=== PATIENT | female | born 1990 | race Caucasian/White ===

== ENCOUNTER 2023-08-03 10:49 | Outpatient (CLI) | payer BC, SELFPAY | END 2023-08-03 10:50 | disposition home or self-care (01) | LOC: NFLDREF 08-04 05:32 | PROVIDERS: Visit Provider Advanced Practice Midwife | DX: O20.9 Hemorrhage in early pregnancy, unspecified (principal) | CPT/HCPCS: 84702; 86850; 86900; 86901 ==

== ENCOUNTER 2023-08-06 09:53 | Outpatient (CLI) | payer BC, SELFPAY | END 2023-08-06 09:54 | disposition home or self-care (01) | LOC: NFLDREF 08-08 07:52 | PROVIDERS: Visit Provider Advanced Practice Midwife | DX: O20.9 Hemorrhage in early pregnancy, unspecified (principal); Z3A.01 Less than 8 weeks gestation of pregnancy | CPT/HCPCS: 84702 ==

== ENCOUNTER 2024-01-25 13:36 | Outpatient (CLI) | payer BC, SELFPAY | END 2024-01-25 13:37 | disposition home or self-care (01) | PROVIDERS: PCP Emergency Medicine; Visit Provider Midwife | DX: Z34.91 Encounter for supervision of normal pregnancy, unspecified, first trimester (principal); Z3A.08 8 weeks gestation of pregnancy | CPT/HCPCS: 76817; 86592; 86703; 86704; 86706; 86762; 86787; 86803; 86850; 86900; 86901; 87086; 87340 ==

== ENCOUNTER 2024-02-27 10:48 | Outpatient (CLI) | payer BC, SELFPAY | END 2024-02-27 10:49 | disposition home or self-care (01) | LOC: NFLDREF 02-28 05:42 | PROVIDERS: PCP Emergency Medicine; Referring Provider Emergency Medicine; Visit Provider Advanced Practice Midwife | DX: Z11.3 Encounter for screening for infections with a predominantly sexual mode of transmission (principal) | CPT/HCPCS: 87491; 87591 ==

== ENCOUNTER 2024-04-18 09:04 | Outpatient (CLI) | payer BC, SELFPAY ==
--- NOTE | 2024-04-18 09:15 | CRLHL7_ITS ---
For Patients: As a result of the Century Cures Act, medical imaging exams and procedure reports are released immediately into your electronic medical record. You may view this report before your referring provider. If you have questions, please contact your health care provider. INDICATION: Evaluate anatomy. COMPARISON: 01/25/2024 TECHNIQUE: Real time stoner scale imaging of the fetus was performed as well as color Doppler analysis of the umbilical vessels. FINDINGS: Sonographic imaging demonstrates a single living intrauterine gestation. Fetus demonstrates a regular cardiac rate of 149 beats per minute. Fetus has a vertex position. The placenta lies posteriorly without evidence of placenta previa. Placental edge 5.7 cm from the internal cervical os. Amniotic fluid volume appears normal. Single deepest vertical pocket: 4.4 cm. The cervix is closed and measures 6.2 cm in length. The composite ultrasound gestational age is calculated at 21 weeks 5 days with an estimated sonographic due date of 08/24/2024. The estimated weight is 422 grams which lies at the 95th %. The following biometric measurements were obtained: Biparietal diameter: 5.1 cm/21 weeks 3 days 90th% Head circumference: 19.2 cm/21 weeks 3 days 87th% Abdominal circumference: 16.4 cm/21 weeks 3 days 80th% Femur length: 3.6 cm/21 weeks 3 days 79th% The HC/AC ratio measures: 1.17 range (1.06-1.24) On anatomic survey, there is a normal appearance of the cerebral ventricles, cavum septi pellucidi, cisterna magna and cerebellum. The nose, lips, and facial profile appear normal. The cervical, thoracic and lumbar spine are well visualized and appear normal. There is a normal four-chamber heart view and the left and right ventricular outflow tracts appear normal. The diaphragm and stomach appear normal. The kidneys and bladder also appear normal. There is a normal three-vessel cord and cord insertion site. The four extremities appear normal. IMPRESSION: Sonographic gestational age 21 weeks 5 days and sonographic due date of 08/24/2024. Sonographic age 10 days ahead of the clinical age. Estimated weight 95th percentile. Abdominal circumference 80th percentile. No intrinsic abnormalities noted on anatomic survey. Dictated by Edwin Antunez MD @ 04/18/2024 10:58:50 AM (Electronically Signed)
== END 2024-04-18 09:05 | disposition home or self-care (01) ==
LOC: US 09:05
PROVIDERS: PCP Emergency Medicine; Visit Provider Midwife
DX: Z34.92 Encounter for supervision of normal pregnancy, unspecified, second trimester (principal); Z3A.21 21 weeks gestation of pregnancy
CPT/HCPCS: 76805

== ENCOUNTER 2024-06-11 10:06 | Outpatient (CLI) | payer BC, SELFPAY | END 2024-06-11 10:07 | disposition home or self-care (01) | LOC: NFLDREF 06-16 18:53 | PROVIDERS: PCP Emergency Medicine; Referring Provider Emergency Medicine; Visit Provider Advanced Practice Midwife | DX: Z34.93 Encounter for supervision of normal pregnancy, unspecified, third trimester (principal); Z3A.28 28 weeks gestation of pregnancy | CPT/HCPCS: 86592 ==

== ENCOUNTER 2024-06-13 08:08 | Outpatient (CLI) | payer BC, SELFPAY | END 2024-06-13 08:09 | disposition home or self-care (01) | LOC: NFLDREF 06-20 02:20 | PROVIDERS: PCP Emergency Medicine; Referring Provider Emergency Medicine; Visit Provider Advanced Practice Midwife | DX: O99.810 Abnormal glucose complicating pregnancy (principal) | CPT/HCPCS: 82951; 82952 ==

== ENCOUNTER 2024-07-14 14:02 | Outpatient (CLI) | payer BC, SELFPAY | END 2024-07-14 14:03 | disposition home or self-care (01) | LOC: US 14:03 | PROVIDERS: PCP Emergency Medicine; Visit Provider Midwife | DX: O24.414 Gestational diabetes mellitus in pregnancy, insulin controlled (principal); O36.63X0 Maternal care for excessive fetal growth, third trimester, not applicable or unspecified; Z3A.35 35 weeks gestation of pregnancy | CPT/HCPCS: 76816; 76819 ==

== ENCOUNTER 2024-07-21 10:56 | Outpatient (CLI) | payer BC, SELFPAY ==
--- NOTE | 2024-07-21 10:45 | CRLHL7_ITS ---
For Patients: As a result of the Cures Act, medical imaging exams and procedure reports are released immediately into your electronic medical record. You may view this report before your referring provider. If you have questions, please contact your health care provider. OB ULTRASOUND BIOPHYSICAL PROFILE, 07/21/2024 CLINICAL HISTORY: Gestational diabetes mellitus. COMPARISON: 07/14/2024, 04/18/2024. TECHNIQUE: Transabdominal OB ultrasound. FINDINGS: SAMMIE by LMP/US: 09/03/2024. GA: 33 weeks 5 days. Gestation: Single. Cervix: Not visualized. Positioning: Vertex. Amniotic Fluid: 5.5 cm SDP. Biophysical Profile: Gross Body Movements: 2 Tone: 2 Respiratory Activity: 2 Amniotic Fluid SDP: 2 Total Score: 8/8 Placenta: Technique: Transabdominal. Placenta Position: Posterior. Dopplers: Heart Rate: 136 bpm. IMPRESSION: Normal biophysical profile score of 8/8. Edwin Antunez M.D. Diagnostic Radiologist [email or web address] Transcribed: 12:49 pm DW/Dictated by: Edwin Antunez MD @ 07/21/2024 12:27:00 PM (Electronically Signed)
== END 2024-07-21 10:57 | disposition home or self-care (01) ==
LOC: US 10:56
PROVIDERS: PCP Emergency Medicine; Visit Provider Midwife
DX: O24.419 Gestational diabetes mellitus in pregnancy, unspecified control (principal)
CPT/HCPCS: 76819

== ENCOUNTER 2024-07-28 09:43 | Outpatient (CLI) | payer BC, SELFPAY ==
--- NOTE | 2024-07-28 10:00 | CRLHL7_ITS ---
For Patients: As a result of the Century Cures Act, medical imaging exams and procedure reports are released immediately into your electronic medical record. You may view this report before your referring provider. If you have questions, please contact your health care provider. INDICATION: Gestational diabetes mellitus in . TECHNIQUE: Ultrasound OB pelvis transabdominal. Real-time stoner-scale imaging of the fetus was performed without stress testing. COMPARISON: 07/14/2024. FINDINGS: heart rate: Regular, 154 bpm. position: Cephalic. Placenta: Fundal. Amniotic fluid volume single deepest pocket 5 cm, 2/2. motion 2/2. tone 2/2. breathing movements 2/2. IMPRESSION: Single viable intrauterine with a biophysical profile 12/12. Dictated by Forest Peterson MD @ 07/29/2024 9:55:58 AM (Electronically Signed)
== END 2024-07-28 09:44 | disposition home or self-care (01) ==
LOC: US 09:43
PROVIDERS: PCP Emergency Medicine; Visit Provider Midwife
DX: O24.419 Gestational diabetes mellitus in pregnancy, unspecified control (principal)
CPT/HCPCS: 76819

== ENCOUNTER 2024-08-08 10:47 | Outpatient (CLI) | payer BC, SELFPAY ==
[2024-08-09 11:41] LABS: Strep B DNA Probe Negative (Negative)
[2024-08-09 11:50] LABS: Strep B Susceptibility Needed? No
== END 2024-08-08 10:48 | disposition home or self-care (01) ==
LOC: NFLDREF 10:48
PROVIDERS: PCP Emergency Medicine; Visit Provider Physician Assistant
DX: O24.419 Gestational diabetes mellitus in pregnancy, unspecified control (principal); Z3A.36 36 weeks gestation of pregnancy
CPT/HCPCS: 87081; 87653

== ENCOUNTER 2024-08-11 10:07 | Outpatient (CLI) | payer BC, SELFPAY ==
--- NOTE | 2024-08-11 10:15 | CRLHL7_ITS ---
For Patients: As a result of the Century Cures Act, medical imaging exams and procedure reports are released immediately into your electronic medical record. You may view this report before your referring provider. If you have questions, please contact your health care provider. OB ULTRASOUND LIMITED BIOPHYSICAL PROFILE, 08/11/2024 CLINICAL HISTORY: Gestational diabetes mellitus. COMPARISON: 07/28/2024, 07/21/2024, 07/14/2024. TECHNIQUE: Real time stoner scale imaging of the fetus was performed transabdominal. FINDINGS: SAMMIE by LMP: 09/03/2024. GA: 36 weeks 5 days. GESTATION: Single. CERVIX: Not visualized. POSITIONING: Vertex. AMNIOTIC FLUID: 5.3 cm SDP. BIOPHYSICAL PROFILE: Gross Body Movements: 2 Tone: 2 Respiratory Activity: 2 Amniotic Fluid/SDP: 2 Total Score: 8/8 PLACENTA: Technique: TA. Placenta Position: Posterior. DOPPLERS: Heart Rate: 137 bpm. BIOMETRY: BDP: 9.3 cm, 37 weeks 5 days. 85.4% HC: 33.5 cm, 38 weeks 2 days. 61.2% AC: 36.3 cm, 40 weeks 2 days. >97% FL: 7.3 cm, 37 weeks 1 day. 60.0% EFW: 3668 grams, 8 lb 1 oz. Age by this US: 38 weeks 3 days. SAMMIE by this US: 08/22/2024. Percentile by SAMMIE: 96.9% IMPRESSION: 1. Sonographic gestational age 38 weeks 3 days and sonographic due date 08/22/2024. Sonographic age 12 days ahead of the clinical age. 2. Estimated weight 97th percentile. Abdominal circumference greater than 97th percentile. 3. Normal biophysical profile score of 8/8. Edwin Antunez M.D. Diagnostic Radiologist [email or web address] Transcribed: 12:28 pm DW/Dictated by: Edwin Antunez MD @ 08/11/2024 11:25:00 AM (Electronically Signed)
== END 2024-08-11 10:08 | disposition home or self-care (01) ==
LOC: US 10:07
PROVIDERS: PCP Emergency Medicine; Visit Provider Midwife
DX: O24.419 Gestational diabetes mellitus in pregnancy, unspecified control (principal); O36.63X0 Maternal care for excessive fetal growth, third trimester, not applicable or unspecified; Z3A.36 36 weeks gestation of pregnancy
CPT/HCPCS: 76816; 76819

== ENCOUNTER 2024-08-18 11:25 | Outpatient (CLI) | payer BC, SELFPAY ==
--- NOTE | 2024-08-18 11:30 | CRLHL7_ITS ---
For Patients: As a result of the Century Cures Act, medical imaging exams and procedure reports are released immediately into your electronic medical record. You may view this report before your referring provider. If you have questions, please contact your health care provider. ULTRASOUND OB PELVIS BIOPHYSICAL PROFILE TECHNIQUE: Real time stoner scale imaging of the fetus was performed transabdominal. SAMMIE by LMP/ US: 09/03/2024. GA: 37w, 5d. Single. INDICATION: Gestational diabetes mellitus. CERVIX: Not visualized. POSITIONING: Vertex. AMNIOTIC FLUID: 4.9 cm SDP. BIOPHYSICAL PROFILE: Total score: 2. Gross body movements: 2. tone: 2. Respiratory activity: 2. Amniotic fluid: 8. (SDP N: Increase 2 x 1 cm) PLACENTA: Technique: Transabdominal. PLACENTA POSITION: Posterior. DOPPLER: heart rate: 139 bpm. IMPRESSION: Normal biophysical profile 12/12. Edwin Antunez M.D. Diagnostic Radiologist [email or web address] SP/Dictated by: Edwin Antunez MD @ 08/18/2024 5:11:00 PM (Electronically Signed)
== END 2024-08-18 11:26 | disposition home or self-care (01) ==
LOC: US 11:26
PROVIDERS: PCP Emergency Medicine; Visit Provider Midwife
DX: O24.419 Gestational diabetes mellitus in pregnancy, unspecified control (principal); Z3A.37 37 weeks gestation of pregnancy
CPT/HCPCS: 76819

== ENCOUNTER 2024-08-25 11:30 | Outpatient (CLI) | payer BC, SELFPAY ==
--- NOTE | 2024-08-25 11:30 | CRLHL7_ITS ---
For Patients: As a result of the Cures Act, medical imaging exams and procedure reports are released immediately into your electronic medical record. You may view this report before your referring provider. If you have questions, please contact your health care provider. OB ULTRASOUND SAMMIE by LMP: 09/03/2024. GA: 38 w, 5 d. Single. Comparison: 08/18/2024, 08/11/2024, 08/04/2024. INDICATION: GDMA2. TECHNIQUE: Real time grayscale imaging of the fetus was performed. Transabdominal. CERVIX: Not visualized. POSITIONING: Vertex. AMNIOTIC FLUID: 6.2 cm. SDP (N: greater than 2 x 1 cm) BIOPHYSICAL PROFILE: 2: Gross body movements 2: tone 2: Respiratory activity 2: Amniotic fluid SDP (N: greater than 2 x 1 cm) 8/8: Total score PLACENTA: Technique: Transabdominal. PLACENTA POSITION: Posterior. DOPPLER: heart rate: 133 bpm. IMPRESSION: Normal biophysical profile score 8/8. Edwin Antunez M.D. Diagnostic Radiologist [email or web address] GOMEZ/benny zapata/Dictated by: Edwin Antunez MD @ 08/25/2024 12:57:00 PM (Electronically Signed)
== END 2024-08-25 11:31 | disposition home or self-care (01) ==
LOC: US 11:31
PROVIDERS: PCP Emergency Medicine; Visit Provider Midwife
DX: O24.419 Gestational diabetes mellitus in pregnancy, unspecified control (principal); Z3A.38 38 weeks gestation of pregnancy
CPT/HCPCS: 76819

== ENCOUNTER 2024-08-28 16:52 | Inpatient (IN) | payer BC, SELFPAY ==
[2024-08-28] VITALS (8 sets, daily range): BP systolic 117–130; BP diastolic 69–88; PULSE 83–103; RESP 16; TEMP 36.8; O2SAT 91–98; BMI 37.7
--- NOTE | 2024-08-28 17:12 | W.PM.LDBA ---
Subjective History of Present Illness Time Seen by Provider: 17:59 Date Seen: 08/28/24 Narrative: HPI: Danna is being admitted to Labor and Delivery for IOL. She is a 34 year old at 39 and 1/7 weeks gestation for GDMA2 on insulin. Her full history and physical was completed by Dr. Eri Hyman on 08/11/2024. Please see this for details. She reports normal movement. Denies leaking fluid, vaginal bleeding, headache, swelling, right upper quadrant pain and visual disturbance. Her admission blood pressure is high normal: 130/88. Will monitor closely and if she has any blood pressures of 140/90 will order preeclampsia labs. Verbal consent obtained to place a Cook catheter. Had some contractions last night but they went away. Not feeling any of the contractions that are recorded on the monitor. Reports normal movement. Lost her mucus plug on 08/26/24. No vaginal bleeding or leak of fluid. Specific Issues/Plans Partner:?Sam. Son: Krishna. Baby: Boy! Gatito H&P completed by KEIRY on 08/11/24 ? #GDM- GDMA2 diagnosed at 30w Failed 1hr GTT, Failed 3/4 values of 3 hr GTT Nutrition consult: ordered On NPH at bedtime, 17U 07/28/24: 19u NPH @ bedtime. Twice weekly testing recommended - pt declined, planning weekly Growth US every 4 weeks starting at 28 weeks ?-form filled out Delivery recommended 39 0/7-39 6/7 weeks? #Suspected macrosomia - see US below #NIPT testing 02/06/24: Low risk aneuploidy # Needs pap at PP check ? Imaginst trimester: 01/25/2024-Normal first trimester OB ultrasound exam. Gestational age calculated at 8 weeks 4 days with a sonographic due date of 09/01/2024. Anatomy scan: normal anatomy, EFW 94.8%??07/14/24 EFW 5 lb 11 oz (97%), BPD 95%, HC 74%, AC >97%, FL 86%, SDP 4.4, vertex, BPP 8/8. 08/11/24: Vtx. SDP 5.3cm. Bpp: 8/8. EFW: 3668 g, 8 lb 1 oz, 97%. BPD 85% HC 61%, AC> 97%, FL 60% COVID:Declines Flu:Declines? Tdap:?Declines 32wk Mental Health:? PHQ-9 8, NARAYAN-7 7 34wk hgb:?07/21/24?? GBS 08/08/24: negative. ? OB - Problem Based A/P Additional Plan (1) GDM, class A2: Status: Acute Plan 1. Admit to the center for induction of labor. 2. Cook catheter placed at 5:55 p.m.: Both balloons with 60 mL of saline. 3. Give 10 units NPH at bedtime tonight. 4. Check blood sugar per induction/labor protocol. 5. Blood type: B+ 6. GBS negative. 7. Start low dose pitocin at midnight. 8. Dr. Graham to assume care at 7Am on 08/29/24 OB Exam Physical Exam Vital signs: Pulse Ox 98 08/28/24 17:10 Narrative: GENERAL APPEARANCE: Pleasant, well-groomed woman in no acute distress. VITAL SIGNS: as noted in nursing notes HEAD: Normocephalic, atraumatic. THYROID: no masses, nodularity, tenderness or enlargement. LUNGS: Clear to auscultation bilaterally without wheezes, rales or rhonchi. HEART: Regular rate and rhythm with normal S1 and S2. No gallop, rub or murmur. ABDOMEN: Gravid. Soft, nontender, nondistended, with normal bowels sounds throughout. EFM: Baseline 135bpm. Accelerations: present. Decelerations: absent. Moderate variability. Reactive. Category 1. TOCO: Q2-4 minutes: patient not feeling them. PRESENTATION: Vertex by Celestino's maneuvers and SVE. SVE: 2 cm/ 70 %/ -3/medium/mid. Padilla score: 5. Cook catheter placed at 5:55 p.m. with 60 mL of saline in both balloons EXTREMITIES: No cyanosis, clubbing, or edema. No varicosities. NEUROLOGIC: Normal gait and balance. Normal deep tendon reflexes at bilateral patella 2+/2, equal without clonus. PSYCHIATRIC: alert and oriented x3. Normal speech pattern, eye contact and affect. SKIN: Warm, dry, and well perfused. Good turgor. No lesions, nodules or rashes.
[2024-08-28 22:27] LABS: Basophils Absolute Auto 0.01 K/uL (0.00-0.30); Basophils Percent Auto 0.1 % (0.0-3.0); Eosinophils Absolute Auto 0.01 K/uL (0.00-0.50); Eosinophils Percent Auto 0.1 % (0.0-7.0); Hematocrit 35.1 % (33.0-51.0); Hemoglobin* 11.8 gm/dL (12.0-16.0); Immature Granulocytes Abs Auto 0.08 K/uL (0.00-0.30); Immature Granulocytes Pct Auto 1.2 %; Lymphocytes Percent Auto 18.5 % (20-44); Mean Corpuscular HGB Conc 34 gm/dL (32-36); Mean Corpuscular Hemoglobin 27 pg (26-34); Mean Corpuscular Volume 80 fL (80-100); Neutrophils Percent Auto 73.1 % (42.0-72.0); Platelet Count* 150 K/uL (140-440); White Blood Count* 6.76 K/uL (4.50-11.00)
[2024-08-28 22:32] LABS: Slide Review Reflex No
[2024-08-28] MEDS: INSULIN NPH 100 UNIT/ML 10 UNIT SUBCUT (22:33)
[2024-08-29] VITALS (60 sets, daily range): BP systolic 81–145; BP diastolic 45–89; PULSE 79–135; RESP 16–20; TEMP 36.5–36.8; O2SAT 92–100
[2024-08-29] MEDS: LACTATED RINGERS 1000 ML 1,000 ML 125 ML IV (02:53)
[2024-08-29] MEDS: OXYTOCIN 30 unit/500 ML in NS 30 UNIT/500 ML BAG IVPB (02:54)
[2024-08-29] MEDS: ROPIVACAINE 0.2% 100 ml 100 ML 12 MG EPIDURAL (05:11)
[2024-08-29] MEDS: LIDOCAINE 2% (PF) 5 ML VIAL EPIDURAL (05:11)
--- NOTE | 2024-08-29 05:19 | P.ANBPRC_ITS ---
PFSH PFS Medical History External hemorrhoid ?K64.4 - Residual hemorrhoidal skin tags (ICD-10) Family History Mother Seizure disorder Stroke High blood pressure Social History Narrative: no tobacco rare etoh no rec drugs, SAHM, What is your current living situation?: I presently have a place to live Problems where you live: no known problems In the past 12 months, utilities in danger of being shut off: no In past 12 months, lack of transportation kept you from medical appts, meetings, work, or getting things needed for daily living: no In the past 12 mos, have been you worried that your food would run out before you had money to buy more?: never true In the past 12 mos, the food you bought just didn't last and you didn't have money to buy more?: never true Smoking Status: Never smoker How often does anyone, including family, friends and others, physically hurt you : never How often does anyone, including family, friends and others, insult or talk down to you: never How often does anyone, including family, friends and others, threaten you with harm: never How often does anyone, including family, friends and others, scream or curse at you: never Meds Home Medications and Allergies Home Medications ?Medication ?Instructions ?Recorded ?Confirmed ?Type docosahexaenoic acid 200 mg mg PO 01/25/24 08/25/24 History capsule ( DHA) famotidine 10 mg tablet (Pepcid AC) 10 mg PO QDAY 05/14/24 08/28/24 History Allergies Allergy/AdvReac Type Severity Reaction Status Date / Time No Known Drug Allergies Allergy Verified 08/25/24 12:56 Results Labs Labs: Laboratory Results - last 24 hr 08/28/24 21:50 WBC 6.76 RBC 4.40 Hgb 11.8 L Hct 35.1 MCV 80 MCH 27 MCHC 34 RDW Coeff of Emerald 14.0 Plt Count 150 Neut % (Auto) 73.1 H Lymph % (Auto) 18.5 L [place] % (Auto) 7.0 Eos % (Auto) 0.1 Baso % (Auto) 0.1 Neut # (Auto) 4.90 Lymph # (Auto) 1.30 [place] # (Auto) 0.50 Eos # (Auto) 0.01 Baso # (Auto) 0.01 Abs Immat Gran (auto) 0.08 Imm/Tot Granulo (auto) 1.2 Blood Type B Positive Antibody Screen NEGATIVE Vital Signs Vital Signs: Last Vital Signs Temp 97.7 F 08/29/24 02:26 Pulse 112 H 08/29/24 05:18 Resp 20 08/29/24 02:26 BP 100/58 L 08/29/24 05:18 Pulse Ox 100 08/29/24 05:16 Weight: 96.5 kg Height: 160.02 cm Anesthesia Procedures Epidural Insertion Patient Location: OB Start Time: 04:50 Stop Time: 05:30 Start Date: 08/29/24 Stop Date: 08/29/24 Reason for Block: primary anesthetic Patient Position: sitting Performed By: Francisco Bernal Preanesthetic Checklist: IV checked, risks and benefits discussed, surgical consent, monitors and equipment checked, pre-op evaluation, timeout performed and anesthesia consent Prep: chlorhexidine gluconate Monitoring: blood pressure monitoring, cardiac technician, continuous pulse oximetry and heart rate Approach: midline Vertebral Space: lumbar (1-5) Needle Type: Tuohy needle Injection Technique: continuous catheter (catheter) Needle gauge: 17 Needle Length (cm): 10 cm Needle Insertion Depth (cm): 7 Catheter Gauge: 19 Catheter Type: multi-orifice Catheter at skin depth (cm): 13 Test Dose Result: negative and lidocaine 1.5% with epinephrine 1 to 200,000
[2024-08-29] MEDS: PHENYLEPHRINE 100 MCG/ML SYRINGE IVP ×3 (05:25→06:05)
[2024-08-29] MEDS: LACTATED RINGERS 1000 ML 1,000 ML 100 ML IV (06:03)
[2024-08-29] MEDS: ePHEDrine sulfate 5 MG/ML inj 10 MG IVP (06:18)
--- NOTE | 2024-08-29 08:55 | W.PM.OBVAGDE ---
OB Procedure Vag Delivery Mother Details Mother Details: The patient is a 34 year-old, 3, Para 1011, admitted on 08/28/24 at 39 1/7 weeks gestation for cervical ripening/induction of labor. A cook catheter was placed at 1750. It fell out at 2125. Low dose pitocin infusion was initiated at 0255 on 08/29/2024. : 3 Para: 1 Weeks Gestation: 39.2 Admission Date: 08/28/24 Additional Details Amniotic Membrane Status: SROM Amniotic Membrane Rupture Date: 08/29/24 Amniotic Membrane Rupture Time: 04:56 Amniotic Membrane Fluid Description: Clear Analgesia/Anesthesia Type: Epidural Waterbirth: No Pitcoin: Yes Intrapartal Events: Labor Induction Induction Method: Intracervical balloon catheter and per pitocin protocol Delivery augmentation: rupture of membranes Labor Onset: 03:30 Complete: 07:02 Pushin:05 Heart: heart tones during second stage were 140 bpm baseline with variable decelerations, good variability. Delivery Details Delivery Date: 08/29/24 Route of delivery: Infant Gender: Male Viability: Alive; Heart Rate Present Position at Delivery: OA (With loose nuchal cord x1, easily reduced over the head prior to delivery of the shoulders.) Delivery Details: Delivered via spontaneous vaginal delivery. was placed on maternal abdomen.? Cord was clamped and cut after a 30-60 second delay. Nose and mouth were bulb suctioned.? Infant weight pending. 1 Minute Interval Total Score: 8 5 Minute Interval Total Score: 9 Additional Details Shoulder Dystocia: No (Broad shoulders and chest had to be slowly eased from the vaginal opening) Placenta Delivery Time: 08:34 Placental Delivery Description: Spontaneous Delivery repair: Chromic (3-0) Procedure Done: Global Blood Loss: 280 Laceration: Perineal - 2nd Degree Episiotomy Description: None Blood Loss Measurement Type: QBL Bakri Used: No Sponge/Need Count Correct: Yes Cord Vessel Description: 3 Vessels Event Summary Status: Mother and were stable after delivery. Disposition: floor
--- NOTE | 2024-08-29 10:20 | PM.ANPOST ---
Post Anesthesia Note Post Anesthesia Note Patient seen: Inpatient Respiratory Status: adequate Cardiovascular Status: adequate Mental Status: baseline Pain: adequate Temp: baseline Anesthetic awareness: N/A Complications: none Follow care: none
[2024-08-29] MEDS: ACETAMINOPHEN 500 MG TABLET 1000 MG PO ×2 (11:43→21:38)
[2024-08-29] MEDS: IBUPROFEN 600 MG TABLET PO (17:04)
[2024-08-30] MEDS: IBUPROFEN 600 MG TABLET PO (04:47)
[2024-08-30 08:05] VITALS: BP 119/82; PULSE 102; RESP 16; TEMP 36.5; O2SAT 99
[2024-08-30 08:16] LABS: Glucose Fasting 87 mg/dl (70-95)
--- NOTE | 2024-08-30 08:49 | PM.OBDSVD1 ---
DS: Providers Provider Time Seen by Provider: 08:20 Date Seen: 08/30/24 Date of admission: 08/28/24 16:52 Primary care physician: Virginia Garcia Admitting Clinician: Eri Hyman MD Attending Physician on discharge: Eri Hyman MD DS: Diagnosis Discharge Diagnosis (1) (normal spontaneous vaginal delivery): Status: Acute (2) LGA (large for gestational age) fetus affecting mother, delivered: Status: Acute Problem details: 10#2oz, Boy, Gatito (3) Anemia due to acute blood loss: Status: Acute Exam Narrative: Exam Narrative: General: Pleasant, , well groomed woman in no acute distress. Vital signs: Included in her electronic medical record. Heart: Regular rate and rhythm without gallop, rub or murmur. Chest: Clear to auscultation bilaterally. Abdomen: Soft, nontender and nondistended with normal bowel sounds throughout. No CVA or flank tenderness. Fundus is firm at the umbilicus in the midline. Extremities: No pain. +1 bilateral lower extremity edema to the ankle Const: Vital Signs, click to edit/add: Vital Signs - 24 hr 08/29/24 08:50 08/29/24 09:06 08/29/24 09:21 Temperature Pulse Rate 102 H 105 H 102 H Pulse Rate [Pulse Oximeter] Respiratory Rate Blood Pressure 117/56 L 123/77 127/70 Blood Pressure [Ri ght Arm] Pulse Oximetry Oxygen Delivery Me thod 08/29/24 09:35 08/29/24 09:50 08/29/24 10:06 Temperature Pulse Rate 105 H 104 H 100 Pulse Rate [Pulse Oximeter] Respiratory Rate Blood Pressure 130/77 138/73 145/67 H Blood Pressure [Ri ght Arm] Pulse Oximetry Oxygen Delivery Me thod 08/29/24 10:21 08/29/24 16:55 08/29/24 23:02 Temperature 98.0 F 97.9 F Pulse Rate 104 H Pulse Rate [Pulse Oximeter] 104 H 89 Respiratory Rate 16 16 Blood Pressure 129/65 Blood Pressure [Ri ght Arm] 125/89 121/87 Pulse Oximetry 97 99 Oxygen Delivery Me thod Room Air Room Air 08/30/24 08:05 Temperature 97.7 F Pulse Rate Pulse Rate [Pulse Oximeter] 102 H Respiratory Rate 16 Blood Pressure Blood Pressure [Ri ght Arm] 119/82 Pulse Oximetry 99 Oxygen Delivery Me thod Room Air OB - DS: Summary Hospital Course Hospital Course: Danna is a 34 year old G 3 P 1011 at 39 1/7 weeks gestation that was admitted to the Center on 08/28/24 for induction of labor due to GDM A2. She had an uncomplicated vaginal delivery. She delivered a viable male . She is breast feeding. the patient has done well. Peripartum Data Infant delivery method: Vaginal Laceration description: Perineal - 2nd Degree complications: none Infant Gender: Male Status at Discharge Functional status at discharge: independent ambulation Overall status at discharge: patient is back to baseline Time Spent with Patient Time attestation: Total time spent providing and/or coordinating discharge services: Time spent: Less than 30 minutes Discharge Plan Discharge Disposition: Home, Self-Care Date of Admission: 08/28/24 16:52 Attending Provider on Discharge: Eri Hyman Consulting Providers: Linda Graham Primary Care Provider: Virginia Garcia Condition: Stable Anticipated Discharge Date/Time: 08/30/24 12:30 Discharge Medications: New ferrous sulfate 325 mg (65 mg iron) Tablet 325 mg PO Q48H Qty: 100 0RF docusate sodium 100 mg Capsule 100 mg PO BID PRN (Reason: constipation) Qty: 100 0RF ibuprofen 600 mg Tablet 600 mg PO Q6H PRNQty: 30 0RF Continued DHA 200 mg capsule 200 mg PO DAILY famotidine [Pepcid AC] 10 mg tablet 10 mg PO QDAY Discontinued Humulin N NPH U-100 Insulin 100 unit/mL suspension 15 unit subcut .hs Qty: 30 2RF Patient Comments: Now taking 19 units at night before bed alcohol swabs [Alcohol Prep Pads] Pads, Medicated 2 pad topical DAILY Qty: 200 0RF Discharge Orders: Discharge Order (Routine); Ordered 08/30/24 Ordered By: Eri Hyman Patient Education: Perineal Tear with Delivery (DC), Vaginal Delivery (DC) Additional Instructions: ACTIVITY RESTRICTIONS: Nothing vaginally for 6 weeks: no tampons/intercourse Off of work/school for a minimum of 6 weeks NO RESTRICTIONS for: Walking Going up/down stairs Showering Symptoms to report to doctor: -Bleeding that saturates more than one pad per hour ?-Passing clots larger than the size of a golf ball ?-Pain not relieved by prescribed medication ?-Fever above 100.4 degrees Fahrenheit ?-A foul vaginal odor ?-Difficulty in emotions, mood and functions ?-Thoughts of hurting yourself and/or ?-Painful, reddened area in your breast ?-Any drainage, redness or tenderness in your IV/epidural site ?-Severe headache that doesn't improve after taking medications ?-Changes in vision, including temporary loss of vision, blurred vision, and/or light sensitivity ?-Upper abdominal pain (usually under ribs on the right side) ?-Decrease in urination or painful, frequent urinating ?-Chest pain ?-Shortness of breath ?-Tenderness or pain with redness and/swelling in the calf(s) of your leg Follow-up: [facility]. [facility] to remove your dressing: incision check. 2. A 6 week visit for an annual physical exam. consultation services are available to all mothers and babies for the first year after delivery.? To make an appointment, please call [phone]. Discharge Diet: Regular Follow Up Appointments: Virginia Garcia MD [Primary Care Provider] - Eri Hyman MD [Staff Physician] - Forms: [employer] Info Instructions
[2024-08-30] MEDS: BENZOCAINE/MENTHOL SPRAY 85 GM AEROSOL 1 APPLIC TOPICAL (10:04)
[2024-08-30] MEDS: DOCUSATE SODIUM 100 MG CAPSULE PO (10:04)
[2024-08-30] MEDS: FERROUS SULFATE 325 MG TABLET PO (10:04)
[2024-08-30 10:19] LABS: Glucose 2 Hour 111 mg/dl (70-155)
== END 2024-08-30 12:46 | disposition home or self-care (01) | DRG 560 ==
PROVIDERS: Obstetrics & Gynecology; Admitting Provider Obstetrics & Gynecology; PCP Emergency Medicine; Visit Provider Obstetrics & Gynecology
DX: O24.424 Gestational diabetes mellitus in childbirth, insulin controlled (principal); Z3A.39 39 weeks gestation of pregnancy; Z37.0 Single live birth; O90.81 Anemia of the puerperium; D62 Acute posthemorrhagic anemia
CPT/HCPCS: 01967; 36415; 59200; 82947; 82950; 85018; 85025; 86592; 86850; 86900; 86901; 88307; A9270; C1726; J2795; J7120

== ENCOUNTER 2024-09-19 14:11 | Outpatient (CLI) | payer BC, SELFPAY ==
--- NOTE | 2024-09-19 15:35 | P.LACCB_ITS ---
Consult Note - Mom Date of Visit Date of visit: 09/19/24 Reason for consultation: Assistance Needed, Infant Weight Concern and Other (how to increase milk transfer) Visit Code: Visit Patient's Information Phone number: [phone] : 3 Para: 2 Allergies No Known Drug Allergies Allergy (Verified 09/18/24 14:17) Mother's medical history: Difficulty conceiving Mother's Medical History: Medical History (Updated 09/02/24 @ 00:01 by Messi Howe) , high-risk ?O09.90 - Supervision of high risk , unspecified, unspecified trimester (ICD-10) External hemorrhoid ?K64.4 - Residual hemorrhoidal skin tags (ICD-10) Work Plans: stay at home Delivery Information Delivery type: Vaginal Gestational Age: 39+2 Gestational Weight For Age: LGA Weight: 4.595 kg Discharge Weight: 4.28 kg Percentage weight loss: 6.9 Baby's Information Baby's Age at Visit: 21 days Baby's Provider or Clinic: [facility] Jaundice: No Past Experience Past Experience: Yes (pumped and bottled for 3 months as baby wouldn't latch well) Current Frequency of Day Feedings: every 2-3 hours, some cluster feeding at night Frequency of Night Feedings: every 3 hours Both Breasts: Yes Suck: strong Latch: seems ok Length of Time: 25-30 min on1st side, 10 min on 2nd side Goals: 1 year Pumping Pumping: Yes Quantity Pumped: 1x/day, gets 4-5 oz Supplementing EBM Supplement: No Formula Supplement: No Baby Elimination Number of Wet Diapers a Day: ea feeding Number of BM a Day: ea feeding; yellow, seedy Breast/Nipple Condition Breast Information: Breasts are symmetrical with rounded lower quadrants, intramammary distance is less than 1.5 inches. No erythema. Nipples are supple, everted prior to feeding. Breast Shape: Round, Pendulous and Pliable Engorgement: No Maternal Nipple Condition - Left: Common Nipple Maternal Nipple Condition - Right: Common Nipple Sore Nipples: No Baby Assessment Skin: Normal Tongue/frenulum: Normal/elastic Palate: Average Lips: Relaxed and Symmetrical Jaw Alignment: Receding Mucosa: [place], moist Onsite Observation Pre-Feed weight: 4.404 kg Post-Feed weight: 4.458 kg Milk Transferred (mL): 54 Position: Cradle and Cross cradle Attachment/latch-on achieved: Easily Suck pattern: Suck burst and normal rest and Extended suck phase (at times) Swallow: Audible, consistent Behavior following feed: Alert, content (after 2nd side; baby unlatched himself) Pre-Nursing Left Nipple: Within Normal Limits Pre-Nursing Right Nipple: Within Normal Limits Post-Nursing Left Nipple: Within Normal Limits Post-Nursing Right Nipple: Within Normal Limits Assessments/Interventions Assessments/Interventions: OBSERVATION: Luis latched easily to mom's left breast in cradle hold; found to not have a very wide open mouth even though lips were flanged out Worked with mom for a more asymmetric latch to get him on more deeply for increased milk transfer Mom reports this is comfortable for her Able to show mom his swallowing behavior to watch for in feedings; transfer him to 2nd side when he's no longer swallowing He nursed strongly for about 12 minutes, then got sleepy and had more of a flutter suck Milk transferred: 42ml Mom then latched baby to her right breast; this nipple is shorter so he has a harder time latching She changed her hand positioning and used cross cradle to allow a deeper latch More vigorous suckling started with this position Luis nursed for 13 minutes, but was very sleepy after about 8 minutes Milk transferred: 12 ml Total milk transferred: 54 ml Luis unlatched self from right breast was quite content in mom's arms, alert and looking around Discussed his transfer with mom, less than he needs/feeding IF each feeding were exactly the same (which they often aren't); Discussed his caloric needs for appropriate growth 4.41kg [id number] feedings/day = 2.7oz/feeding If he's not able to increase his transfer at each feeding to gain weight, he will need a supplement of EBM after feedings or increase # of feeds/day, or both Mom verbalized understanding Education provided: Early feeding cues to maximize timing of latching, Asymmetric latch technique for wide/deep latch to increase milk (start with nipple and nose across from each other; breast sandwich, bring baby to breast when he has a wide open mouth for deepest latch), Transfer for baby and increase comfort for mom, Supply/demand nature of milk supply, Need for frequent stimulation/milk removal (allow cluster feeds as he desires), Alternative feeding methods (SNS, cup, finger feeding, bottling), Pumping for milk management and Milk collection, storage Feeding Plan: Continue feeding every 2-3 hours, allow cluster feeds if desired No longer than 20 minutes on 1st breast; watch for active suckling/swallowing and transfer to 2nd side when no longer seeing No longer than 20 minutes to keep his energy up and able to nurse effectively on 2nd side Work on cross cradle hold to allow making an easier target for him to latch to and get a deeper latch for more effective nursing Keep appt on Mon for weight check If not gaining weight with these maneuvers, will need to supplement to help him gain weight and get back to birthweight which may then allow him more strength to nurse better Follow-Up Suggested follow up: Appointment in 1 week (with me if weight gain still lacking) Recommend baby be seen by provider for:: weight check in 3 days Time Spent Time spent with patient (min): 90 (reviewing EMR and face to face with patient and ) Meds Home Medications and Allergies Home Medications ?Medication ?Instructions ?Recorded ?Confirmed ?Type docosahexaenoic acid 200 mg 200 mg PO DAILY 01/25/24 09/18/24 History capsule ( [facility]) docusate sodium 100 mg capsule 100 mg PO BID PRN constipation 08/30/24 09/18/24 Rx #100 caps ferrous sulfate 325 mg (65 mg 325 mg PO Q48H #100 tabs 08/30/24 09/18/24 Rx iron) tablet ibuprofen 600 mg tablet 600 mg PO Q6H PRN #30 tabs 08/30/24 09/18/24 Rx Allergies Allergy/AdvReac Type Severity Reaction Status Date / Time No Known Drug Allergies Allergy Verified 09/18/24 14:17
== END 2024-09-19 14:12 | disposition home or self-care (01) ==
PROVIDERS: Visit Provider Obstetrics & Gynecology
DX: Z39.1 Encounter for care and examination of lactating mother (principal)
CPT/HCPCS: G0463

== ENCOUNTER 2024-10-17 10:11 | Outpatient (CLI) | payer BC, SELFPAY ==
[2024-10-19 01:03] LABS: HPV Source Cervix; HPV, High Risk by TMA Not Detected
== END 2024-10-17 10:12 | disposition home or self-care (01) ==
PROVIDERS: Visit Provider Registered Nurse
DX: Z11.51 Encounter for screening for human papillomavirus (HPV) (principal); Z12.4 Encounter for screening for malignant neoplasm of cervix
CPT/HCPCS: 87624; 87625; 88141; 88142